=== PATIENT | male | born 1985 | race Two or more races ===

== ENCOUNTER 2016-05-30 16:00 | Inpatient (IN) | payer MEDICARE, OTHER ==
--- NOTE | ~2016-05-30 | PN ---
Unit #: [id number] #: [id number] Patient: JONATHAN CANALES II [id number] [facility] [address] [place] [address] [id number] I MR#: [id number] NAME: JONATHAN CANALES II ROOM: 75 Age: 30 Sex: M Admission Date: 05/30/2016 : 1985 Attending Physician: Nunu Aranda M.D. Admitting Physician: Nunu Aranda M.D. Primary Care Physician: Primary Care Physician Raquel PEPE PROGRESS NOTES DATE 06/03/2016 DISCUSSION Mr. Canales is a 30-year-old white male who was seen today and chart was reviewed and case was discussed with the staff. He has been anxious, withdrawn and rather seclusive to himself. Meanwhile, he has been cooperative with treatment recommendations and appears to be coming out of the detox without any complications. MENTAL STATUS EXAMINATION Young white male who was casually dressed with fair personal hygiene and appears to be in no acute distress or discomfort. He was awake and alert on interaction with intact orientation. His mood was anxious with congruent affect. His speech is slow and goal-directed. He denies any suicidal or homicidal ideations and also denies any auditory or visual hallucinations. His insight and judgement remains slightly impaired. TREATMENT PLAN 1. Will continue his current medications and treatment protocol and will monitor his response to the medications and make further adjustments as needed. 2. Will continue to follow up. Dictated by... Peet Colón/charlie TD: 06/03/2016 22:58 JOB #: [id number] Unit #: [id number] #: [id number] Patient: JONATHAN CANALES II [facility] PROGRESS NOTES X Nunu Aranda MD PROGRESS NOTE
--- NOTE | ~2016-05-30 | PA ---
Unit #: [id number] #: [id number] Patient: JONATHAN CANALES II [id number] [place] [address] [id number] I MR#: [id number] NAME: JONATHAN CANALES II ROOM: P185 Age: 30 Sex: M Admission Date: 05/30/2016 : 1985 Date of Assessment: 05/30/2016 Attending Physician: Nunu Aranda M.D. Admitting Physician: Nunu Aranda M.D. Primary Care Physician: Primary Care Physician No PSYCHIATRIC ASSESSMENT DATE OF SERVICE 05/30/2016. IDENTIFYING DATA Mr. Canales is a 20-year-old single white male who is a resident of [place], [place] and was brought to the hospital by his parents Edelmira and Eugenio Woodall on a self-referred to the hospital as a transfer from [facility]. CHIEF COMPLAINT "I thought it was chest pain pills." HISTORY OF PRESENT ILLNESS Mr. Canales is a 30-year-old white male who was transferred to us from [facility] in [place], [place] who was accompanied by his parents. Upon presentation, he stated "I thought it was chest pain pills. I guess they were OxyContin that I could not breathe in, turned blue and my cousin brought me here." The patient reports he overdosed yesterday and he was brought to the hospital by his cousin and that he does not remember how many Lortab or oxycodone he took and that he has been on a month-long binge and has been taking several pills including opioids as well as Xanax. He does report increasing depression, anxiety, irritability, restlessness, but denies any suicidal ideations, intent, or plan. SUBSTANCE ABUSE HISTORY The patient reports extensive history of substance abuse and dependence including history of experimentation and abuse of alcohol, cannabis, cocaine, opioids, amphetamines, and benzodiazepines, and currently opioids and benzodiazepines appears to be his drug of choice as he reports that he has been using oxycodone and Lortab as well as Xanax says the last use being yesterday; however, he was also used methamphetamine and cannabis within the last 24 hours. PAST PSYCHIATRIC HISTORY The patient has had history of inpatient chemical dependency treatment as well as outpatient psychiatric treatment. Review of the medical records indicate that currently he is not active in any treatment program, is not seeing a psychiatrist, and not taking any psychotropic medications. PAST MEDICAL HISTORY No acute or chronic medical illnesses. Unit #: [id number] #: [id number] Patient: JONATHAN CANALES II ALLERGIES Flu vaccine. PERSONAL AND SOCIAL HISTORY A 30-year-old white male who reports that he is single, unemployed, and lives at home with his father and has fairly decent social support system. MENTAL STATUS EXAMINATION Young white male who was casually dressed with fair personal hygiene, appears to be in no acute distress or discomfort. He was awake and alert on interaction with intact orientation to time, place, and person. His mood was anxious and depressed with a congruent affect. His speech was slow and goal directed. He denies any suicidal or homicidal ideations, and also denies any auditory or visual hallucinations. His insight and judgment remain significantly impaired. DIAGNOSTIC IMPRESSION Psychiatric: Opioid dependence, moderate and acute withdrawals; benzodiazepine dependence, moderate; methamphetamine dependence, moderate; cannabis dependence, moderate. Medical: None. Stressors: Moderate psychosocial stressors. TREATMENT PLAN 1. The patient has presented with history of substance abuse and mood disorder, and has been decompensating and will need inpatient hospitalization for detoxification, and safety, and stabilization. We will start him on detox protocol. We will closely monitor for any worsening withdrawal symptoms. 2. Supportive therapy was provided to the patient. 3. Safe, structured, and nourishing environment will be provided. ESTIMATED LENGTH OF STAY 4 to 5 days. ABILITY TO HELP SELF Limited. WILLINGNESS TO HELP SELF The patient appears to be willing to help self. STRENGTHS 1. Communicative. 2. Cooperative. PROBLEMS 1. Chronic dysphoric symptoms. 2. Chronic chemical dependency. 3. Poor social support system. DISCHARGE CRITERIA This will be contingent upon the patient's ability to go through detox without having any significant withdrawal symptoms as well as his ability to stay safe to himself, particularly after discharge from the hospital. Dictated by... Nunu Aranda M.D. Unit #: [id number] #: [id number] Patient: JONATHAN CANALES II IAA/modl TD: 05/31/2016 06:58 JOB #: [id number] PSYCHIATRIC ASSESSMENT X Nunu Aranda MD PSYCHIATRIC ASSESSMENT
--- NOTE | ~2016-05-30 | DS ---
Unit #: [id number] #: [id number] [facility]: [facility] [id number] [facility] [address] [place], [place] [id number] I MR#: [id number] NAME: JONATHAN CANALES II ROOM: [facility] Age: 30 Sex: M Admission Date: 05/30/2016 : 1985 Discharge Date: 06/04/2016 Attending Physician: Nunu Aranda M.D. Primary Care Physician: Primary Care Physician No DISCHARGE SUMMARY IDENTIFYING DATA Mr. Canales is a 20-year-old white male, who was transferred to us from [facility] Emergency Room, where he was brought in with drug overdose. DISCHARGE DIAGNOSES Psychiatric: Alcohol dependence, moderate and acute withdrawals; alcohol-induced mood disorder. Medical: None. Stressors: Moderate psychosocial stressors. HISTORY OF PRESENT ILLNESS Please see initial psychiatric evaluation for details. PAST PSYCHIATRIC HISTORY Please see initial psychiatric evaluation for details. PAST MEDICAL HISTORY Please see initial psychiatric evaluation for details. HOSPITAL COURSE The patient was admitted to the adult chemical dependency unit at [facility] Gaitan and was oriented to the hospital environment. Routine p.r.n. medications were initiated and he was started on the detox protocol and was closely monitored. He was taking the medications regularly and was tolerating them fairly well and was able to come out of detox without any complications and was willing to continue treatment on an outpatient basis and as such, it was decided that he will be discharged home and will continue treatment on an outpatient basis. DISCHARGE CONDITION Stable. PROGNOSIS Guarded. Dictated by... Pete Colón/naomie TD: 07/13/2016 07:18 JOB #: [id number] Unit #: [id number] #: [id number] Patient: JONATHAN CANALES II DISCHARGE SUMMARY Page 1 of 1 X Nunu Aranda MD X DISCHARGE SUMMARY
--- NOTE | ~2016-05-30 | PN ---
Unit #: [id number] #: [id number] Patient: JONATHAN CANALES II [id number] [facility] [address] [place] [address] [id number] I MR#: [id number] NAME: JONATHAN CANALES II ROOM: [facility] Age: 30 Sex: M Admission Date: 05/30/2016 : 1985 Attending Physician: Nunu Aranda M.D. Admitting Physician: Nunu Aranda M.D. Primary Care Physician: Primary Care Physician Raquel PEPE PROGRESS NOTES DATE June 02, 2016 DISCUSSION Mr. Canales is a 30-year-old white male, who was seen today and chart was reviewed and the case was discussed with the staff. He has been anxious, withdrawn, and rather seclusive to himself. Meanwhile, he has been cooperative with the treatment recommendations and he has been taking the medications and tolerating them fairly well with no reported side effects. MENTAL STATUS EXAMINATION Young white male, who was casually dressed with fair personal hygiene and appears to be in no acute distress or discomfort. He was awake and alert on interaction with intact orientation. His mood is anxious with a congruent affect. The patient denies any suicidal or homicidal ideations. His insight and judgment remain slightly impaired. TREATMENT PLAN 1. We will continue him on his current medications and treatment protocol, and will monitor his response to the medications, and make further adjustments as needed. 2. We will continue to followup. Dictated by... Pete Colón/jodee TD: 06/03/2016 11:48 JOB #: [id number] Unit #: [id number] #: [id number] Patient: JONATHAN CANALES II [facility] PROGRESS NOTES X Nunu Aranda MD X PROGRESS NOTE
--- NOTE | ~2016-05-30 | PN ---
Unit #: [id number] #: [id number] Patient: JONATHAN CANALES II [id number] [facility] [address] [place] [address] [id number] I MR#: [id number] NAME: JONATHAN CANALES II ROOM: P185 Age: 30 Sex: M Admission Date: 05/30/2016 : 1985 Attending Physician: Nunu Aranda M.D. Admitting Physician: Nunu Aranda M.D. Primary Care Physician: Primary Care Physician Raquel PEPE PROGRESS NOTES DATE June 01, 2016 DISCUSSION Mr. Canales is a 30-year-old white male, who was seen today and chart was reviewed and the case was discussed with the staff. He has been anxious, withdrawn, and rather seclusive to himself. Meanwhile, he has been cooperative with the treatment recommendations and he has been taking the medications and tolerating them fairly well. MENTAL STATUS EXAMINATION Young white male, who was casually dressed with fair personal hygiene and appears to be in no acute distress or discomfort. He was awake and alert on interaction with intact orientation. His mood is anxious with a congruent affect. His speech is slow and goal-directed. He denies any suicidal or homicidal ideations. His insight and judgment remain slightly impaired. TREATMENT PLAN 1. We will continue him on his current treatment protocol, and will monitor his response to the medications, and make further adjustments as needed. 2. We will continue to followup. Dictated by... Pete Colón/jodee TD: 06/02/2016 10:30 JOB #: [id number] Unit #: [id number] #: [id number] Patient: JONATHAN CANALES II [facility] PROGRESS NOTES X Nunu Aranda MD X PROGRESS NOTE
--- NOTE | ~2016-05-30 | HP ---
Unit #: [id number] #: [id number] Patient: DIMITRIS CANALES II [id number] [place] [address] [id number] I MR#: [id number] NAME: DIMITRIS CANALES II ROOM: P185 Age: 30 Sex: M Admission Date: 05/30/2016 : 1985 Attending Physician: Nunu Aranda M.D. HISTORY AND PHYSICAL HISTORY OF PRESENT ILLNESS Dimitris is a 30 year old admitted to [facility] after a drug overdose. He was admitted to [facility] where he was intubated. When extubated and medically stable he was transferred to [facility] for psychiatric care. PAST MEDICAL HISTORY History of poly illicit substance abuse. PAST SURGICAL HISTORY Nothing reported. ALLERGIES Flu shot SOCIAL HISTORY Smokes greater than one pack per day. Drinks alcohol rarely. Admits to a long history of poly illicit substance abuse. FAMILY HISTORY Medically noncontributory. REVIEW OF SYSTEMS CONSTITUTIONAL: No fever or chills. HEENT: Denies any sore throat, ear pain or runny nose. CARDIOVASCULAR: Denies chest pain, irregular heart rhythm or palpitations. CHEST: Denies shortness of breath or cough. No hemoptysis. GASTROINTESTINAL: Denies nausea, vomiting, diarrhea or chronic constipation. ENDOCRINE: Denies history of increased thirst or urination. No recent significant weight loss or gain. GENITOURINARY: Denies dysuria, frequency, or hematuria. SKIN: Denies any rashes. HEMATOLOGIC: Denies history of increased bleeding or bruising. MUSCULOSKELETAL: Denies any hot, swollen joints. No generalized muscle pain. NEUROLOGIC: Denies problems with vision or speech. No frequent, severe headaches. No numbness, tingling or weakness in any extremities. Denies loss of bladder or bowel control. CURRENT MEDICATIONS Detox protocol PHYSICAL EXAMINATION Unit #: [id number] #: [id number] Patient: DIMITRIS CANALES II GENERAL: Alert, well-nourished, in no apparent distress. VITAL SIGNS: Blood pressure 110/78, heart rate 56, respirations 16, temperature 98.6. WEIGHT: 175 pounds. HEIGHT: 5'11". SKIN: Warm and dry without rash or lesion. HEENT: Normocephalic. TMs not viewed. Oral and nasal passages clear. Conjunctivae clear. Pupils equal, round and reactive to light and accommodation. Extraocular movements intact. NECK: Supple without lymphadenopathy or thyromegaly. HEART: Regular rate and rhythm without murmur. LUNGS: Clear. ABDOMEN: Soft, nontender. : Not done. EXTREMITIES: No evidence of cyanosis, clubbing or edema. Moves all extremities without focal deficit. NEUROLOGICAL: Grossly within normal limits. Cranial Nerves: II: Visual sheldon are intact. III, IV AND : Extraocular movements are intact. Pupils are equal, round and reactive to light. V: Facial sensation is grossly normal. VII: Facial movements and expression are normal. VIII: Auditory acuity grossly intact. IX, X: Uvula is midline. Phonation is normal. XI: Patient shrugs shoulders and turns head normally. XII: Tongue protrudes in the midline. Sensory and Motor Function: Sensory and motor sensation is grossly normal. Motor: moves all extremities well. Coordination: Gait is normal. Deep Tendon Reflexes: Intact. IMPRESSION Psychiatric admission RECOMMENDATIONS PSYCHIATRIC: Per psychiatrist. MEDICAL: I see no contraindications to participating in facility's activities. MEDICAL PROGNOSIS Good. MEDICAL CONDITION Stable. Dictated by... Keila Staley P.A.-C. for Pete Magallanes/nuria TD: 05/31/2016 01:19 JOB #: [id number] Unit #: [id number] #: [id number] Patient: DIMITRIS CANALES II HISTORY AND PHYSICAL X Keila Staley X HISTORY AND PHYSICAL
--- NOTE | ~2016-05-30 | PN ---
Unit #: [id number] #: [id number] Patient: JONATHAN CANALES II [id number] [facility] [address] [place] [address] [id number] I MR#: [id number] NAME: JONATHAN CANALES II ROOM: P185 Age: 30 Sex: M Admission Date: 05/30/2016 : 1985 Attending Physician: Nunu Aranda M.D. Admitting Physician: Nunu Aranda M.D. Primary Care Physician: Primary Care Physician Raquel BACA NOTES DATE OF SERVICE: 05/31/2016 SUBJECTIVE Mr. Canales is a 30-year-old male who was seen today and chart was reviewed and case was discussed with the staff. He has been anxious, withdrawn, depressed, and rather seclusive to himself. Meanwhile, he has been cooperative with treatment recommendations and has been taking the medication and tolerating them fairly well. MENTAL STATUS EXAMINATION Young white male, who was casually dressed with fair personal hygiene, and appears to be in no acute distress or discomfort. He was awake and alert on interaction with intact orientation. His mood was anxious with a congruent affect. He denies any suicidal or homicidal ideations. His insight and judgment remain slightly impaired. TREATMENT PLAN 1. We will continue his current medications and treatment protocol and we will monitor his response to the medications and make further adjustments as needed. 2. We will continue to follow up. Dictated by... Pete Colón/naomie TD: 06/02/2016 07:04 JOB #: [id number] MY BACA NOTES X Nunu Aranda MD PROGRESS NOTE
[2016-05-31 12:40] LABS: BASOPHIL% 0.2 % (0-2.5); EOSINOPHIL# 0.1 X10e3 (0-0.7); EOSINOPHIL% 2.1 % (0.0-7.0); HEMATOCRIT 44.7 % (38.0-50.0); HEMOGLOBIN 14.7 gm/dL (13.0-16.0); LYMPHOCYTE# 2.7 X10e3 (1.0-3.5); LYMPHOCYTE% 42.8 % (17.0-45.0); MEAN CELL VOLUME 92.5 FL (83-96); MEAN CORPUSCULAR HEMOGLOBIN 30.5 PG (28-34); MEAN PLATELET VOLUME 8.7 FL (6.5-11.5); MONOCYTE# 0.5 X10e3 (0-1.0); MONOCYTE% 7.8 % (3.0-12.0); NEUTROPHIL# 2.9 X10e3 (1.5-7.1); NEUTROPHIL% 47.1 % (40-75); PLATELET COUNT 239 X10e3 (140-420); RED BLOOD COUNT 4.83 X10e (3.90-5.60); RED CELL DISTRIBUTION WIDTH 13.4 % (11.0-15.5); WHITE BLOOD COUNT 6.2 X10e3 (4.0-10.5)
[2016-05-31 12:45] LABS: ALBUMIN SERUM 3.5 g/dL (3.5-5.0); ALKALINE PHOSPHATASE 52 U/L (32-92); ALT (SGPT) 15 U/L (10-40); AST (SGOT) 21 U/L (10-42); BILIRUBIN,TOTAL 0.7 mg/dL (0.2-2.0); BLOOD UREA NITROGEN 16 mg/dL (9-23); BUN/CREATININE RATIO 17.77; CALCIUM SERUM 8.6 mg/dL (8.4-10.2); CARBON DIOXIDE 31 mmol/L (22-31); CHLORIDE 105 mmol/L (100-111); CREATININE SERUM 0.9 mg/dL (0.6-1.4); GLOM FILT RATE Estimated ABOVE60 mL/min (>60); GLUCOSE FASTING 95 mg/dL (70-110); POTASSIUM 4.4 mmol/L (3.5-5.1); SODIUM 141 mmol/L (135-145)
[2016-05-31 12:49] LABS: THYROID STIMULATING HORMONE 0.56 uIU/ml (0.34-5.60)
[2016-05-31 12:56] LABS: FREE THYROXIN (T4) 0.89 ng/dL (0.58-1.64)
[2016-05-31 13:02] LABS: DIFF IND NO
[2016-06-02 10:02] LABS: URINE APPEARANCE TURBID; URINE BILIRUBIN NEG (NEG); URINE BLOOD NEG (NEG); URINE COLOR DK YELLOW; URINE GLUCOSE NEG (NEG); URINE KETONE NEG (NEG); URINE LEUKOCYTE ESTERASE 1+ (NEG); URINE NITRATE NEG (NEG); URINE PROTEIN NEG (NEG); URINE SPECIFIC GRAVITY 1.031 (1.003-1.035); URINE UROBILINOGEN 0.2 MG/DL (NEG)
[2016-06-02 10:06] LABS: URINE BACTERIA AUWI NEG (NEGATIVE); URINE SQUAMOUS EPITHELIAL CELL OCC /[HPF]
[2016-06-02 10:58] LABS: AMPHETAMINE POS (NEG); BARBITURATES NEG (NEG); BENZODIAZEPINES POS (NEG); COCAINE NEG (NEG); MARIJUANA POS (NEG); OPIATES NEG (NEG); TRICYCLIC ANTIDEPRESSANTS NEG (NEG); U METHADONE NEG (NEG)
== END 2016-06-04 16:16 | disposition home or self-care (01) | DRG 897 ==
LOC: P1E 16:00
PROVIDERS: Psychiatry & Neurology Psychiatry
PROC: HZ2ZZZZ Detoxification Services for Substance Abuse Treatment (ICD-10-PCS; principal; 2016-05-30)
DX: F11.23 Opioid dependence with withdrawal (principal); F19.20 Other psychoactive substance dependence, uncomplicated; F15.20 Other stimulant dependence, uncomplicated; F12.20 Cannabis dependence, uncomplicated
CPT/HCPCS: 80053; 80307; 81003; 84439; 84443; 85025; 86592